=== PATIENT | male | born 1985 | race Hispanic/Latino ===

== ENCOUNTER 2022-08-29 17:39 | Inpatient (IN) | payer SELFPAY ==
[2022-08-29] MEDS ORDERED: Propofol 1,000 MG/100 ML VIAL IV ONE (17:50)
[2022-08-29] MEDS ORDERED: FENTANYL 50 MCG/ML 1 ML VIAL ONE ×2 (17:56→18:41)
[2022-08-29 18:03] LABS: Hemoglobin 17.6 g/dL (14.0-18.0); Mean Corpuscular HGB CONC 34.7 g/dL (32.0-36.0); Mean Corpuscular Hemoglobin 32.6 pg (27.0-31.0); Mean Corpuscular Volume 93.7 fl (78.0-98.0); Mean Platelet Volume 6.1 fL (7.4-10.4); Platelet Count 401 10x3/uL (130-400); RBC Distribution Width 11.7 % (11.5-14.5); Red Blood Cell (RBC) Count 5.39 mill/uL (4.70-6.10); White Blood Cell (WBC) Count 15.9 10x3/uL (4.8-10.8)
[2022-08-29 18:14] LABS: ALT (SGPT) 59 U/L (8-55); AST (SGOT) 34 U/L (5-34); Acetaminophen Less than 10.0 mcg/mL (10.0-30.0); Albumin 4.6 g/dL (3.5-5.0); Alcohol Less than 10 mg/dL (Less than 10); Alkaline Phosphatase 104 U/L (40-110); Anion Gap 15 mmol/L (10-20); BUN (Urea Nitrogen) 22 mg/dL (8.9-20.6); Bilirubin, Total 0.7 mg/dL (0.2-1.2); Calc. Creatinine Clearance 0 mL/min (70-130); Calcium 9.2 mg/dL (7.8-10.44); Carbon Dioxide 22 mmol/L (22-29); Chloride 104 mmol/L (98-107); Estimated GFR 86; Globulin 3.2 g/dL (2.4-3.5); Glucose 112 mg/dL (70-105); Magnesium 1.9 mg/dL (1.6-2.6); Potassium 3.4 mmol/L (3.5-5.1); Protein, Total 7.8 g/dL (6.0-8.3); Salicylate Less than 8.0 mg/dL (15.0-30.0); Sodium 138 mmol/L (136-145)
[2022-08-29 18:19] LABS: INR-International Normal Ratio 0.9; PTT 32.6 sec (22.9-36.1); Prothrombin Time 12.4 sec (12.0-14.7)
[2022-08-29] MEDS ORDERED: Midazolam HCl 2 mg/2 ml Vial ONE (18:29)
[2022-08-29 18:35] LABS: Bilirubin Negative (Negative); Blood, Urine 1+ (Negative); Clarity Clear (Clear); Glucose, Urine (Dipstick) Normal (Negative); Ketone, Urine 60 mg/dL (Negative); Leukocyte Negative Leu/uL (Negative); Nitrite Negative (Negative); Protein, Urine (Dipstick) 70 mg/dL (Neg-Trace); Specific Gravity, Urine 1.035 (1.002-1.036); Urobilinogen 6 mg/dL (Less than 2)
[2022-08-29] MEDS ORDERED: LORazepam 2 MG/ML SYR.(CARPUJECT) ONE (18:35)
[2022-08-29 18:38] LABS: Band 1 % (5-11); Eosinophils 7 % (0-10); Lymphocytes 34 % (21-51); MDiff Complete? YES; Monocytes 4 % (0-10); Neutrophil 46 % (42-75); Platelet Morphology Comment Appears Increased; Polychromasia SLIGHT = 2-3 cells (100X) (0-2/hpf); Reactive Lymphocytes 8 % (0-10)
[2022-08-29 18:43] LABS: Mucous/LPF 1+ LPF (<2+); RBC/HPF 0-3 HPF (0-3)
[2022-08-29 18:44] LABS: Amphetamine Not Detected (NotDetected); Barbiturates Screen Not Detected (NotDetected); Benzodiazepine Screen Not Detected (NotDetected); Cocaine Metabolite Screen Detected (NotDetected); Methadone Not Detected (NotDetected); Methamphetamine Not Detected (NotDetected); Opiate Screen Not Detected (NotDetected); Oxycodone Screen Not Detected (NotDetected); Phencyclidine (PCP) Not Detected (NotDetected); THC/Cannabinoid Screen Not Detected (NotDetected); Tricyclic Screen Not Detected (NotDetected)
[2022-08-29] MEDS ORDERED: FENTANYL 500 MCG/10 ML VIAL 2,000 MCG in Sodium Chloride 0.9% 60 ML IV SCH (18:45)
[2022-08-29 18:48] LABS: Actual Bicarbonate (HCO3a) 24.1 mEq/L (22-28); Base Excess (BEa) 0.7 mEq/L (-2.0 to +3.0); CO2 Tension 35.1 mmHg (35.0-45.0); Hemoglobin (Hb) 15.8 g/dL (14.0-18.0); O2 Tension (PaO2), arterial 88.5 mmHg (80.0-100.0); Potassium - ABG Lab 3.05 mmol/L (3.70-5.30); pH, Arterial 7.45 (7.35-7.45)
[2022-08-29 18:49] LABS: ALV-art Gradient 224.125 mmHg (0-20); Puncture Site RRA
[2022-08-29 18:52] LABS: SARS-CoV-2 NAA Rapid Test Not Detected (NotDetected)
[2022-08-29] MEDS ORDERED: Pantoprazole 40 MG VIAL IVP SCH (21:00)
[2022-08-29] MEDS ORDERED: NOREPINEPHRINE 8 MG/250 ML-D5W 250 ML IVPB PRN (21:39)
[2022-08-29] MEDS ORDERED: Insulin Regular 300 UNITS/3 ML VIAL SC PRN (21:39)
[2022-08-29] MEDS ORDERED: Bisacodyl 5 MG TAB PO PRN (21:39)
[2022-08-29 21:40] LABS: Hemoglobin 15.4 g/dL (14.0-18.0); Mean Corpuscular HGB CONC 35.2 g/dL (32.0-36.0); Mean Corpuscular Hemoglobin 32.8 pg (27.0-31.0); Mean Corpuscular Volume 93.2 fl (78.0-98.0); Platelet Count 335 10x3/uL (130-400); RBC Distribution Width 11.5 % (11.5-14.5); White Blood Cell (WBC) Count 12.8 10x3/uL (4.8-10.8)
[2022-08-29] MEDS ORDERED: Midazolam HCl 2 mg/2 ml Vial SLOW IVP PRN (21:44)
[2022-08-29] MEDS ORDERED: Propofol 1,000 MG/100 ML VIAL IV PRN (21:45)
[2022-08-29] MEDS ORDERED: Electrolyte Replacement Protocol 1 EACH FS SCH (21:45)
[2022-08-29] MEDS ORDERED: Propofol BOLUS 1,000 MG/100 ML VIAL IV PRN (21:45)
[2022-08-29] MEDS ORDERED: DISCONTINUE PREVIOUS NARCOTIC PAIN MEDICATIONS AND BENZODIAZEPINES FS SCH (21:45)
[2022-08-29] MEDS ORDERED: Morphine 4 MG/ML VIAL SLOW IVP PRN (21:45)
[2022-08-29] MEDS ORDERED: Ventilator Sedation Protocol 1 EACH FS SCH (21:45)
[2022-08-29] MEDS ORDERED: Fentanyl BOLUS 250 ML IVPB PRN (21:45)
[2022-08-29 22:01] LABS: Troponin I Less than 0.010 ng/mL (< 0.028)
[2022-08-29] MEDS ORDERED: Magnesium 2 GM/50 ML(in water) 2 GM in Premix Bag 1 BAG IVPB SCH (23:00)
[2022-08-29] MEDS ORDERED: Pantoprazole 40 MG VIAL ONE (23:30)
[2022-08-29] MEDS ORDERED: Magnesium 2 GM/50 ML BAG (IN WATER) ONE (23:30)
[2022-08-30 00:36] LABS: Troponin I Less than 0.010 ng/mL (< 0.028)
[2022-08-30 01:18] LABS: Mean Corpuscular HGB CONC 35.5 g/dL (32.0-36.0); Mean Corpuscular Hemoglobin 33.1 pg (27.0-31.0); Mean Corpuscular Volume 93.3 fl (78.0-98.0); Mean Platelet Volume 5.9 fL (7.4-10.4); Platelet Count 322 10x3/uL (130-400); RBC Distribution Width 11.4 % (11.5-14.5); Red Blood Cell (RBC) Count 4.52 mill/uL (4.70-6.10); White Blood Cell (WBC) Count 14.8 10x3/uL (4.8-10.8)
[2022-08-30] MEDS ORDERED: Potassium Chloride 20 MEQ/100 ML PREMIX BAG ONE ×2 (01:23→03:21)
[2022-08-30] MEDS: Potassium Chloride 20 MEQ in Premix Bag 1 BAG IVPB SCH ×2 (01:31→03:27)
[2022-08-30] MEDS ORDERED: Propofol 1,000 MG/100 ML VIAL IV ONE (01:41)
[2022-08-30 04:59] LABS: #Eosinphils 0.8 thou/uL (0.0-0.7); #Lymphocytes 3.9 thou/uL (1.20-3.40); #Monocytes 0.9 thou/uL (0.11-0.59); #Neutrophils 7.5 thou/uL (1.40-6.50); %Basophils 0.1 % (0.0-1.0); %Eosinophils 5.9 % (0.0-10.0); %Lymphocytes 29.6 % (21.0-51.0); %Monocytes 7.1 % (0.0-10.0); %Neutrophils 57.4 % (42.0-75.0); Hemoglobin 14.9 g/dL (14.0-18.0); Mean Corpuscular HGB CONC 35.1 g/dL (32.0-36.0); Mean Corpuscular Hemoglobin 33.2 pg (27.0-31.0); Mean Corpuscular Volume 94.5 fl (78.0-98.0); Mean Platelet Volume 6.2 fL (7.4-10.4); Platelet Count 315 10x3/uL (130-400); RBC Distribution Width 11.6 % (11.5-14.5); White Blood Cell (WBC) Count 13.1 10x3/uL (4.8-10.8)
[2022-08-30 05:21] LABS: Phosphorus 2.8 mg/dL (2.3-4.7)
[2022-08-30 05:27] LABS: ALT (SGPT) 40 U/L (8-55); AST (SGOT) 24 U/L (5-34); Albumin 3.6 g/dL (3.5-5.0); Alkaline Phosphatase 80 U/L (40-110); Anion Gap 9 mmol/L (10-20); BUN (Urea Nitrogen) 16 mg/dL (8.9-20.6); Calc. Creatinine Clearance 0 mL/min (70-130); Calcium 8.1 mg/dL (7.8-10.44); Carbon Dioxide 25 mmol/L (22-29); Chloride 108 mmol/L (98-107); Estimated GFR 102; Globulin 2.5 g/dL (2.4-3.5); Glucose 97 mg/dL (70-105); Magnesium 2.4 mg/dL (1.6-2.6); Potassium 4.1 mmol/L (3.5-5.1); Protein, Total 6.1 g/dL (6.0-8.3); Sodium 138 mmol/L (136-145)
[2022-08-30] MEDS: Sodium Chloride 0.9% 1,000 ML IV SCH ×4 (09:48→22:21)
[2022-08-30] MEDS: Pantoprazole 40 MG VIAL IVP SCH (10:06)
[2022-08-30 11:07] LABS: Hemoglobin 14.4 g/dL (14.0-18.0)
[2022-08-30] MEDS ORDERED: Ondansetron PF 4 MG/2 ML Vial IVP SCH (11:32)
[2022-08-30] MEDS ORDERED: Ondansetron PF 4 MG/2 ML Vial IVP PRN (11:32)
[2022-08-30 20:05] LABS: Hemoglobin 14.9 g/dL (14.0-18.0)
[2022-08-31 04:17] LABS: #Basophils 0.1 thou/uL (0.0-0.2); #Eosinphils 0.8 thou/uL (0.0-0.7); #Lymphocytes 3.5 thou/uL (1.20-3.40); #Monocytes 0.8 thou/uL (0.11-0.59); #Neutrophils 6.2 thou/uL (1.40-6.50); %Basophils 0.4 % (0.0-1.0); %Eosinophils 6.8 % (0.0-10.0); %Lymphocytes 30.9 % (21.0-51.0); %Monocytes 6.6 % (0.0-10.0); %Neutrophils 55.3 % (42.0-75.0); Hemoglobin 14.8 g/dL (14.0-18.0); Mean Corpuscular HGB CONC 35.4 g/dL (32.0-36.0); Mean Corpuscular Hemoglobin 33.6 pg (27.0-31.0); Mean Corpuscular Volume 94.9 fl (78.0-98.0); Mean Platelet Volume 6.3 fL (7.4-10.4); Platelet Count 302 10x3/uL (130-400); RBC Distribution Width 11.5 % (11.5-14.5); Red Blood Cell (RBC) Count 4.42 mill/uL (4.70-6.10); White Blood Cell (WBC) Count 11.2 10x3/uL (4.8-10.8)
[2022-08-31 04:36] LABS: Phosphorus 2.7 mg/dL (2.3-4.7)
[2022-08-31 04:40] LABS: ALT (SGPT) 40 U/L (8-55); AST (SGOT) 30 U/L (5-34); Albumin 3.7 g/dL (3.5-5.0); Alkaline Phosphatase 81 U/L (40-110); Anion Gap 9 mmol/L (10-20); BUN (Urea Nitrogen) 7 mg/dL (8.9-20.6); Bilirubin, Total 0.8 mg/dL (0.2-1.2); Calc. Creatinine Clearance 140 mL/min (70-130); Calcium 8.4 mg/dL (7.8-10.44); Carbon Dioxide 26 mmol/L (22-29); Chloride 107 mmol/L (98-107); Estimated GFR 117; Globulin 2.6 g/dL (2.4-3.5); Glucose 91 mg/dL (70-105); Magnesium 2.1 mg/dL (1.6-2.6); Potassium 3.6 mmol/L (3.5-5.1); Protein, Total 6.3 g/dL (6.0-8.3); Sodium 138 mmol/L (136-145)
[2022-08-31] MEDS: Sodium Chloride 0.9% 1,000 ML IV SCH ×3 (05:07→20:49)
[2022-08-31] MEDS: Pantoprazole 40 MG VIAL IVP SCH (08:41)
[2022-08-31 16:23] LABS: Hemoglobin 15.1 g/dL (14.0-18.0)
[2022-09-01 04:07] VITALS: BMI 26.6
[2022-09-01] MEDS: Sodium Chloride 0.9% 1,000 ML IV SCH ×3 (04:08→20:13)
[2022-09-01 07:32] LABS: #Eosinphils 0.9 thou/uL (0.0-0.7); #Lymphocytes 2.4 thou/uL (1.20-3.40); #Monocytes 0.7 thou/uL (0.11-0.59); #Neutrophils 4.5 thou/uL (1.40-6.50); %Basophils 0.4 % (0.0-1.0); %Eosinophils 10.8 % (0.0-10.0); %Lymphocytes 27.9 % (21.0-51.0); %Monocytes 8.5 % (0.0-10.0); %Neutrophils 52.6 % (42.0-75.0); Hemoglobin 15.3 g/dL (14.0-18.0); Mean Corpuscular HGB CONC 33.5 g/dL (32.0-36.0); Mean Corpuscular Hemoglobin 31.7 pg (27.0-31.0); Mean Corpuscular Volume 94.6 fl (78.0-98.0); Mean Platelet Volume 6.1 fL (7.4-10.4); Platelet Count 329 10x3/uL (130-400); RBC Distribution Width 11.6 % (11.5-14.5); Red Blood Cell (RBC) Count 4.82 mill/uL (4.70-6.10); White Blood Cell (WBC) Count 8.5 10x3/uL (4.8-10.8)
[2022-09-01 07:41] LABS: Phosphorus 2.3 mg/dL (2.3-4.7)
[2022-09-01 07:50] LABS: ALT (SGPT) 40 U/L (8-55); AST (SGOT) 28 U/L (5-34); Albumin 3.8 g/dL (3.5-5.0); Alkaline Phosphatase 81 U/L (40-110); Anion Gap 10 mmol/L (10-20); BUN (Urea Nitrogen) 8 mg/dL (8.9-20.6); Bilirubin, Total 0.7 mg/dL (0.2-1.2); Calc. Creatinine Clearance 154 mL/min (70-130); Calcium 8.7 mg/dL (7.8-10.44); Carbon Dioxide 24 mmol/L (22-29); Chloride 107 mmol/L (98-107); Estimated GFR 121; Globulin 2.8 g/dL (2.4-3.5); Glucose 105 mg/dL (70-105); Potassium 3.9 mmol/L (3.5-5.1); Protein, Total 6.6 g/dL (6.0-8.3); Sodium 137 mmol/L (136-145)
[2022-09-01] MEDS: Pantoprazole 40 MG VIAL IVP SCH (07:58)
[2022-09-01] MEDS ORDERED: Magnesium 2 GM/50 ML(in water) 2 GM in Premix Bag 1 BAG IVPB SCH (09:15)
[2022-09-02 08:10] VITALS: TEMP 97.6
[2022-09-02] MEDS: Sodium Chloride 0.9% 1,000 ML IV SCH (08:40)
[2022-09-02] MEDS: Pantoprazole 40 MG VIAL IVP SCH (08:49)
[2022-09-02 12:34] VITALS: BP 130/77
== END 2022-09-02 17:42 | disposition home or self-care (01) | DRG 917 ==
LOC: EDBD 17:39 → ERS 17:39 → ERHOLD 19:20 → CCU 08-30 08:40 → T4-B 08-30 12:56
PROVIDERS: ADMIT Student in an Organized Health Care Education/Training Program; ATTEND Student in an Organized Health Care Education/Training Program
PROC: 5A1935Z Respiratory Ventilation, Less than 24 Consecutive Hours (ICD-10-PCS; principal; 2022-08-29)
PROC: 06HY33Z Insertion of Infusion Device into Lower Vein, Percutaneous Approach (ICD-10-PCS; 2022-08-29)
PROC: 0DH673Z Insertion of Infusion Device into Stomach, Via Natural or Artificial Opening (ICD-10-PCS; 2022-08-29)
DX: T45.512A Poisoning by anticoagulants, intentional self-harm, initial encounter (principal); J96.01 Acute respiratory failure with hypoxia; X78.1XXA Intentional self-harm by knife, initial encounter; J32.4 Chronic pansinusitis; E87.6 Hypokalemia; F10.10 Alcohol abuse, uncomplicated; Z20.822 Contact with and (suspected) exposure to COVID-19; F14.90 Cocaine use, unspecified, uncomplicated; Z78.1 Physical restraint status
CPT/HCPCS: 36415; 36416; 36556; 36600; 70450; 71045; 72125; 80053; 80306; 80307; 81003; 81015; 82805; 83605; 83735; 84100; 84443; 84484; 85025; 85027; 85610; 85730; 86850; 86900; 86901; 93005; 94002; 96374; 96375; 96376; C9113; J2060; J2250; J2405; J2704; J3010; J3475; J3480; J3490; J7050; U0002